=== PATIENT | male | born 1995 | race Two or more races ===

== ENCOUNTER 2020-09-18 04:20 | Emergency (ER) | payer MEDICAID, OTHER ==
[~2020-09-18] VITALS: Ht 162.6 cm; Wt 61.2 kg
--- NOTE | 2020-09-18 04:29 | NUR ---
PT AAOX4. BIBSELF C/O HEAD LACERATION S/P SLIP AND FALL IN THE SHOWER. -KO. PLACED IN BED 9 ON MONITOR AND PULSE OX. AWAITING MD FOR EVAL.
[2020-09-18] MEDS ORDERED: TDAP [DIPH/PERTUSSIS/TET] 0.5 ML VIAL IM ONE ×2 (04:38→05:00)
--- NOTE | 2020-09-18 04:43 | NUR ---
BROUGHT TO CT
--- NOTE | 2020-09-18 05:14 | NUR ---
receiving laceration care with dario. tolerated well
--- NOTE | 2020-09-18 05:45 | NUR ---
pt is medically stable for d/c. Patient discharged to home in stable condition. Rx and Written and verbal after care instructions given. Patient verbalizes understanding of instruction.
[2020-09-18 05:46] VITALS: BP 116/68
== END 2020-09-18 05:47 | disposition home or self-care (01) ==
LOC: ER 04:22
DX: S01.01XA Laceration without foreign body of scalp, initial encounter (principal); S09.8XXA Other specified injuries of head, initial encounter; F17.200 Nicotine dependence, unspecified, uncomplicated; W01.0XXA Fall on same level from slipping, tripping and stumbling without subsequent striking against object, initial encounter; Y93.89 Activity, other specified; Y92.89 Other specified places as the place of occurrence of the external cause; Y99.8 Other external cause status
CPT/HCPCS: 70450-TC; 90715